=== PATIENT | male | born 1965 | race Caucasian/White ===

== ENCOUNTER 2021-03-31 20:39 | Emergency (ER) | payer OTHER ==
[2021-03-31 21:35] LABS: BASOPHIL 0.3 % (0-2); EOSINOPHIL 0.6 % (0-5); HCT 38.2 % (42.0-52.0); HGB 13.9 g/dl (13.2-18.0); LYMPHOCYTE 14.2 % (15-48); MCH 32.4 pg (25.0-31.0); MCHC 36.4 g/dL (32.0-36.0); MONOCYTE 4.3 % (0-12); MPV 10.1 fL (6.0-9.5); NEUTROPHIL 80.2 % (41-80); NRBC 0; PLT 232 K/uL (150-400); RBC 4.29 M/uL (4.70-6.00); RDW 13.2 % (11.5-14.0); WBC 10.7 K/uL (4.0-10.5)
[2021-03-31 21:52] LABS: BUN/CREAT RATIO (CALC) 12.7 RATIO; CREATININE 1.1 mg/dL (0.67-1.17); POTASSIUM 3.7 mmol/L (3.5-5.1)
[2021-03-31] MEDS ORDERED: NORCO 5-325 TA1 EACH PO (23:11)
[2021-03-31 23:12] LABS: BILIRUBIN NEGATIVE (NEGATIVE); BLOOD 3+ Ery/uL (NEGATIVE); COLOR YELLOW (YELLOW); GLUCOSE (U) NORMAL (NORMAL); LEUKOCYTES NEGATIVE Leu/uL (NEGATIVE); NITRITE NEGATIVE (NEGATIVE); PROTEIN NEGATIVE (NEGATIVE); SPECIFIC GRAVITY 1.025 (1.001-1.030); UROBILINOGEN 0.2 mg/dL (0.2-1.0)
[2021-03-31] MEDS ORDERED: FLOMAX0.4 MG PO (23:13)
[2021-03-31 23:15] LABS: CLARITY SLIGHTLY HAZY (CLEAR)
[2021-03-31 23:18] LABS: URINARY RBC 20-50
== END 2021-03-31 23:45 | disposition home or self-care (01) ==
LOC: FER 20:39
PROVIDERS: Nurse Practitioner Family
DX: N13.2 Hydronephrosis with renal and ureteral calculous obstruction (principal); I10 Essential (primary) hypertension; F17.210 Nicotine dependence, cigarettes, uncomplicated; Z79.899 Other long term (current) drug therapy; Z88.8 Allergy status to other drugs, medicaments and biological substances
CPT/HCPCS: 36415; 80048; 81001; 85025; J1885; J2405; J7030